=== PATIENT | female | born 1960 | race Caucasian/White ===

== ENCOUNTER 2016-05-21 10:30 | Emergency (ER) | payer OTHER ==
[~2016-05-21] VITALS: Ht 172.7 cm; Wt 99.8 kg
[2016-05-21 11:00] VITALS: BP 116/65
[2016-05-21] MEDS ORDERED: Ketorolac 60mg Inj IM ONE (11:00)
[2016-05-21] MEDS ORDERED: ACETAMINOPHEN-1 EAC1 ORAL (11:43)
[2016-05-21] MEDS ORDERED: ROBAXIN-750750 MG PO (11:43)
[2016-05-21] MEDS ORDERED: IBUPROFEN600 MG ORAL (11:43)
--- NOTE | 2016-05-21 12:39 | Diagnostic Imaging Report ---
Indication: Pain 3 views of the left knee were obtained. Findings: There is an intramedullary kehinde within the proximal tibia. The bones are osteopenic. There is no acute fracture or malalignment identified. No definite joint effusion is seen. Impression: No acute injury identified
--- NOTE | 2016-05-21 12:39 | Diagnostic Imaging Report ---
Indication: Pain Findings: 3 views of the left shoulder were obtained. Bones are osteopenic. There is no malalignment. There is pacemaker noted in the left anterior chest wall and sternotomy. Impression: No acute injury
[2016-05-21 12:58] VITALS: BP 117/65
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
== END 2016-05-21 12:45 | disposition home or self-care (01) ==
LOC: EDBD 10:30 → EMR 11:38
DX: S80.02XA Contusion of left knee, initial encounter (principal); Z95.1 Presence of aortocoronary bypass graft; Z95.810 Presence of automatic (implantable) cardiac defibrillator; Z88.0 Allergy status to penicillin; V13.4XXA Pedal cycle driver injured in collision with car, pick-up truck or van in traffic accident, initial encounter; Y92.480 Sidewalk as the place of occurrence of the external cause; Y99.8 Other external cause status
CPT/HCPCS: 96372; 99284